=== PATIENT | male | born 1955 | race Caucasian/White ===

== ENCOUNTER 2016-08-11 12:50 | Inpatient (IN) | payer OTHER, MEDICAID ==
[2016-08-11] MEDS ORDERED: ASPIRIN EC325 M1 PO (12:59)
[2016-08-11] MEDS ORDERED: ACID REDUCER75 M1 PO (12:59)
[2016-08-11 13:52] LABS: URINE BILIRUBIN SMALL (NEG); URINE BLOOD MODERATE (NEG); URINE GLUCOSE (UA) NEGATIVE (NEG); URINE KETONE NEGATIVE (NEG); URINE LEUKOCYTE ESTERASE NEGATIVE (NEG); URINE NITRITE NEGATIVE (NEG); URINE PH 6.5 (5.0-8.0); URINE PROTEIN NEGATIVE (NEG)
[2016-08-11 14:01] LABS: BASO ABSOLUTE COUNT 0.1 tho/cmm (0.0-0.2); EOSINOPHIL ABSOLUTE COUNT 0.1 tho/cmm (0.0-0.7); HCT-HEMATOCRIT 34.7 % (36.0-53.5); HGB-HEMOGLOBIN 12.4 gm/dl (13.5-17.0); IMMATURE GRANULOCYTES ABSOLUTE 0.03 tho/cmm (0-0.03); IMMATURE GRANULOCYTES PERCENT 0.4 % (0-0.3); LYMPH % 11.1 % (20-45); LYMPH ABSOLUTE COUNT 0.9 tho/cmm (0.8-4.5); MCH (MEAN CORPUSCULAR HGB) 30.2 pg (28.0-32.0); MCHC MEAN CORPUSCULAR HGB CONC 35.7 % (32.0-36.0); MCV (MEAN CELL VOLUME) 84.6 fl (82.0-96.0); MEAN PLATELET VOLUME 8.9 cmc (9.4-12.4); MONO % 8.1 % (0-12); MONOCYTE ABSOLUTE COUNT 0.7 tho/cmm (0.0-1.2); NEUTROPHIL ABSOLUTE COUNT 6.6 tho/cmm (1.6-8.0); NEUTROPHIL-AUTOMATED 6.6 tho/cmm (1.6-8.0); NEUTROPHILS % 78.4 % (40-80); PLATELET COUNT 355 tho/cmm (150-450); RED CELL DISTRIBUTION WIDTH 17.2 % (12.4-16.4); WHITE BLOOD COUNT 8.4 tho/cmm (4.0-10.0)
[2016-08-11 14:02] LABS: URINE APPEARANCE CLEAR; URINE COLOR DARK YELLOW; URINE EPITHELIAL CELLS 0-1 /[HPF] (0-10); URINE WBC 0 /[HPF] (0-5)
[2016-08-11 14:11] LABS: PROTHROMBIN TIME 12.1 SECONDS (9.0-13.6)
[2016-08-11 14:15] LABS: ALB/GLOB RATIO 0.9 (0.8-2.0); ALBUMIN 3.7 g/dl (3.5-5.0); ALT/SGPT 100 U/L (12-78); BILIRUBIN,TOTAL 6.7 mg/dl (0.0-1.5); BLOOD UREA NITROGEN 7 mg/dl (6-24); CALCIUM 8.5 mg/dl (8.5-10.5); CARBON DIOXIDE-VENOUS 25 mmol/L (22-32); CHLORIDE 94 mmol/l (96-110); CREATININE 0.64 mg/dl (0.60-1.30); GLUCOSE 112 mg/dL (70-110); SODIUM 128 mmol/L (135-145); eGFR VALUE FOR BLACK >90 mL/Min
[2016-08-11 14:23] LABS: ALKALINE PHOSPHATASE 591 U/L (33-138); ANION GAP 12 mmol/L (0-20); AST/SGOT 95 U/L (10-40); LIPASE 4917 U/L (73-393)
[2016-08-11 14:24] LABS: POTASSIUM 3.4 mmol/L (3.7-5.1)
[2016-08-11 22:37] LABS: ANION GAP 10 mmol/L (0-20); BLOOD UREA NITROGEN 5 mg/dl (6-24); CALCIUM 8.7 mg/dl (8.5-10.5); CARBON DIOXIDE-VENOUS 26 mmol/L (22-32); CHLORIDE 98 mmol/l (96-110); CREATININE 0.64 mg/dl (0.60-1.30); GLUCOSE 98 mg/dL (70-110); POTASSIUM 3.4 mmol/L (3.7-5.1); SODIUM 131 mmol/L (135-145); eGFR VALUE FOR BLACK >90 mL/Min
[2016-08-12 05:51] LABS: BASO % 1.4 % (0-2); BASO ABSOLUTE COUNT 0.1 tho/cmm (0.0-0.2); EOS % 3.8 % (0-7); EOSINOPHIL ABSOLUTE COUNT 0.3 tho/cmm (0.0-0.7); HCT-HEMATOCRIT 34.2 % (36.0-53.5); HGB-HEMOGLOBIN 12.2 gm/dl (13.5-17.0); IMMATURE GRANULOCYTES ABSOLUTE 0.02 tho/cmm (0-0.03); IMMATURE GRANULOCYTES PERCENT 0.3 % (0-0.3); MCH (MEAN CORPUSCULAR HGB) 30.1 pg (28.0-32.0); MCHC MEAN CORPUSCULAR HGB CONC 35.7 % (32.0-36.0); MCV (MEAN CELL VOLUME) 84.4 fl (82.0-96.0); MEAN PLATELET VOLUME 9.1 cmc (9.4-12.4); MONO % 8.5 % (0-12); MONOCYTE ABSOLUTE COUNT 0.6 tho/cmm (0.0-1.2); NEUTROPHIL ABSOLUTE COUNT 4.7 tho/cmm (1.6-8.0); NEUTROPHIL-AUTOMATED 4.7 tho/cmm (1.6-8.0); PLATELET COUNT 356 tho/cmm (150-450); RED BLOOD COUNT 4.05 mil/cmm (4.40-5.70); WHITE BLOOD COUNT 6.6 tho/cmm (4.0-10.0)
[2016-08-12 06:26] LABS: INR 1.1 INR (0.9-1.1)
[2016-08-12 06:34] LABS: ALB/GLOB RATIO 0.8 (0.8-2.0); ALBUMIN 3.3 g/dl (3.5-5.0); ALT/SGPT 98 U/L (12-78); AMYLASE 168 U/L (20-90); ANION GAP 14 mmol/L (0-20); AST/SGOT 90 U/L (10-40); BILIRUBIN,INDIRECT 1.4 mg/dL (0.0-1.0); BILIRUBIN,TOTAL 6.4 mg/dl (0.0-1.5); BLOOD UREA NITROGEN 6 mg/dl (6-24); CALCIUM 8.5 mg/dl (8.5-10.5); CARBON DIOXIDE-VENOUS 23 mmol/L (22-32); CHLORIDE 98 mmol/l (96-110); CREATININE 0.59 mg/dl (0.60-1.30); GLUCOSE 102 mg/dL (70-110); POTASSIUM 3.3 mmol/L (3.7-5.1); SODIUM 132 mmol/L (135-145); eGFR VALUE FOR BLACK >90 mL/Min
[2016-08-12 06:54] LABS: ALKALINE PHOSPHATASE 557 U/L (33-138); LIPASE 2294 U/L (73-393)
[2016-08-13 04:40] LABS: BASO % 0.7 % (0-2); BASO ABSOLUTE COUNT 0.1 tho/cmm (0.0-0.2); EOS % 1.3 % (0-7); EOSINOPHIL ABSOLUTE COUNT 0.1 tho/cmm (0.0-0.7); HCT-HEMATOCRIT 33.9 % (36.0-53.5); HGB-HEMOGLOBIN 11.8 gm/dl (13.5-17.0); IMMATURE GRANULOCYTES ABSOLUTE 0.03 tho/cmm (0-0.03); IMMATURE GRANULOCYTES PERCENT 0.3 % (0-0.3); LYMPH % 15.7 % (20-45); LYMPH ABSOLUTE COUNT 1.4 tho/cmm (0.8-4.5); MCH (MEAN CORPUSCULAR HGB) 29.8 pg (28.0-32.0); MCHC MEAN CORPUSCULAR HGB CONC 34.8 % (32.0-36.0); MCV (MEAN CELL VOLUME) 85.6 fl (82.0-96.0); MONO % 10.3 % (0-12); MONOCYTE ABSOLUTE COUNT 0.9 tho/cmm (0.0-1.2); NEUTROPHIL ABSOLUTE COUNT 6.4 tho/cmm (1.6-8.0); NEUTROPHIL-AUTOMATED 6.4 tho/cmm (1.6-8.0); NEUTROPHILS % 71.7 % (40-80); PLATELET COUNT 346 tho/cmm (150-450); RED BLOOD COUNT 3.96 mil/cmm (4.40-5.70); RED CELL DISTRIBUTION WIDTH 17.3 % (12.4-16.4); WHITE BLOOD COUNT 8.9 tho/cmm (4.0-10.0)
[2016-08-13 04:50] LABS: ALB/GLOB RATIO 0.9 (0.8-2.0); ALBUMIN 3.1 g/dl (3.5-5.0); ALT/SGPT 101 U/L (12-78); ANION GAP 12 mmol/L (0-20); AST/SGOT 93 U/L (10-40); BILIRUBIN,TOTAL 6.1 mg/dl (0.0-1.5); BLOOD UREA NITROGEN 8 mg/dl (6-24); CALCIUM 8.4 mg/dl (8.5-10.5); CARBON DIOXIDE-VENOUS 26 mmol/L (22-32); CHLORIDE 100 mmol/l (96-110); GLUCOSE 117 mg/dL (70-110); POTASSIUM 3.5 mmol/L (3.7-5.1); SODIUM 134 mmol/L (135-145); eGFR VALUE FOR BLACK >90 mL/Min
[2016-08-13 04:56] LABS: ALKALINE PHOSPHATASE 508 U/L (33-138)
[2016-08-14 06:40] LABS: ALB/GLOB RATIO 0.9 (0.8-2.0); ALBUMIN 3.5 g/dl (3.5-5.0); BILIRUBIN,DIRECT 5.5 mg/dl (0.0-0.3); BILIRUBIN,INDIRECT 0.7 mg/dL (0.0-1.0); BILIRUBIN,TOTAL 6.2 mg/dl (0.0-1.5)
[2016-08-15 05:27] LABS: BASO % 0.6 % (0-2); BASO ABSOLUTE COUNT 0.1 tho/cmm (0.0-0.2); EOS % 5.3 % (0-7); EOSINOPHIL ABSOLUTE COUNT 0.5 tho/cmm (0.0-0.7); HCT-HEMATOCRIT 33.9 % (36.0-53.5); IMMATURE GRANULOCYTES ABSOLUTE 0.02 tho/cmm (0-0.03); IMMATURE GRANULOCYTES PERCENT 0.2 % (0-0.3); MCH (MEAN CORPUSCULAR HGB) 29.7 pg (28.0-32.0); MCHC MEAN CORPUSCULAR HGB CONC 35.4 % (32.0-36.0); MCV (MEAN CELL VOLUME) 83.9 fl (82.0-96.0); MEAN PLATELET VOLUME 9.1 cmc (9.4-12.4); MONO % 10.7 % (0-12); MONOCYTE ABSOLUTE COUNT 0.9 tho/cmm (0.0-1.2); NEUTROPHILS % 71.2 % (40-80); PLATELET COUNT 366 tho/cmm (150-450); RED BLOOD COUNT 4.04 mil/cmm (4.40-5.70); RED CELL DISTRIBUTION WIDTH 17.9 % (12.4-16.4); WHITE BLOOD COUNT 8.5 tho/cmm (4.0-10.0)
[2016-08-15 05:49] LABS: ALB/GLOB RATIO 0.9 (0.8-2.0); ALBUMIN 3.3 g/dl (3.5-5.0); BILIRUBIN,DIRECT 4.7 mg/dl (0.0-0.3); BILIRUBIN,INDIRECT 0.8 mg/dL (0.0-1.0); BILIRUBIN,TOTAL 5.5 mg/dl (0.0-1.5)
[2016-08-15] MEDS ORDERED: NORVASC5 M2 PO (13:22)
[2016-12-08] MEDS ORDERED: COLACE100 M1 PO (11:48)
[2016-12-08] MEDS ORDERED: EXCEDRIN EXTRA1 EAC4 PO (11:49)
[2016-12-08] MEDS ORDERED: ROXICODONE5 M2 PO (11:49)
[2016-12-08] MEDS ORDERED: MULTIVITAMIN PO (11:51)
== END 2016-08-15 14:05 | DRG 445 ==
LOC: EDMED 12:50 → EMR2 17:19 → 5WF 17:50 → PACU 08-13 11:14 → 5WF 08-13 12:15
PROVIDERS: Emergency Medicine; Internal Medicine Gastroenterology; Specialist; ADMIT Family Medicine
PROC: 0F798DZ Dilation of Common Bile Duct with Intraluminal Device, Via Natural or Artificial Opening Endoscopic (ICD-10-PCS; principal; 2016-08-13)
PROC: 0FB98ZX Excision of Common Bile Duct, Via Natural or Artificial Opening Endoscopic, Diagnostic (ICD-10-PCS; 2016-08-13)
DX: K83.1 Obstruction of bile duct (principal); R17 Unspecified jaundice; E87.1 Hypo-osmolality and hyponatremia; I10 Essential (primary) hypertension; E83.51 Hypocalcemia; D64.9 Anemia, unspecified; E87.6 Hypokalemia; F10.10 Alcohol abuse, uncomplicated; F17.200 Nicotine dependence, unspecified, uncomplicated; F12.929 Cannabis use, unspecified with intoxication, unspecified; F17.210 Nicotine dependence, cigarettes, uncomplicated; K21.9 Gastro-esophageal reflux disease without esophagitis; K59.00 Constipation, unspecified; K83.8 Other specified diseases of biliary tract; Z79.82 Long term (current) use of aspirin
CPT/HCPCS: C1769; C1874; G0480; J0360; J1956; J3010; J7030; Q9966; Q9967